=== PATIENT | female | born 1985 | race African-American/Black ===

== ENCOUNTER 2020-09-15 09:01 | Emergency (ER) | payer MEDICAID ==
[~2020-09-15] VITALS: Ht 165.1 cm; Wt 59.0 kg
[2020-09-15] MEDS ORDERED: SODIUM CHLORIDE 0.9% 1,000 ML IV ONE (10:00)
[2020-09-15] MEDS ORDERED: ONDANSETRON HCL 4MG/2ML INJ IV ONE (10:00)
[2020-09-15] MEDS ORDERED: FAMO-135 MT (11:43)
[2020-09-15] MEDS ORDERED: ONDA4TAB11 PO (11:44)
[2020-09-15] MEDS ORDERED: FAMOTIDINE 20MG/2ML VIAL IV ONE (11:45)
[2020-09-15] MEDS ORDERED: METOCLOPRAMIDE HCL 10MG/2ML VIAL IV ONE (12:15)
[2020-09-15] MEDS ORDERED: DEXAMETHASONE 4MG/ML 1ML VIAL IV SCH (12:15)
[2020-09-15 12:23] VITALS: BP 134/73
[2020-09-16] MEDS ORDERED: FAMO-134 MT (11:46)
[2020-09-16] MEDS ORDERED: POTA20TA82 MT (11:46)
[2020-09-16] MEDS ORDERED: METO-293 MT (11:46)
== END 2020-09-15 12:30 | disposition home or self-care (01) ==
LOC: ER 09:01
DX: O21.0 Mild hyperemesis gravidarum (principal); O09.521 Supervision of elderly multigravida, first trimester; Z3A.01 Less than 8 weeks gestation of pregnancy
CPT/HCPCS: 93005; 96361; 96374; 96375; 99285; J1100; J2405; J2765; J3490; J7030; Z7610

== ENCOUNTER 2020-09-16 06:13 | Emergency (ER) | payer MEDICAID ==
[~2020-09-16] VITALS: Ht 160 cm; Wt 68.1 kg
[~2020-09-16 06:13] MED LIST: FAMO-135 MT; ONDA4TAB11 PO
[2020-09-16] MEDS ORDERED: FAMOTIDINE 20MG/2ML VIAL IV ONE (07:15)
[2020-09-16] MEDS ORDERED: SODIUM CHLORIDE 0.9% 1,000 ML IV ONE (07:15)
[2020-09-16] MEDS ORDERED: METOCLOPRAMIDE HCL 10MG/2ML VIAL IV ONE (07:15)
[2020-09-16 08:03] LABS: BASOPHILS % 0.7 % (0.0-2.0); EOSINOPHILS % 0.1 % (0.0-5.0); HEMOGLOBIN. 9.9 g/dL (12.0-16.0); LYMPHOCYTES % 10.6 % (20.0-50.0); MEAN CORPUSCULAR HEMOGLOBIN 23.5 pg (28.0-32.0); MEAN CORPUSCULAR VOLUME 73.6 fL (81.0-99.0); MEAN PLATELET VOLUME 8.3 fl (7.4-10.4); MONOCYTES % 8.6 % (2.0-8.0); PLATELET 388 x1000/uL (130-400); RED BLOOD CELL COUNT 4.22 mill/uL (4.2-5.4); RED CELL DISTRIBUTION WIDTH 21.9 % (11.6-14.6)
[2020-09-16 08:14] LABS: CHLORIDE 103 mEq/L (98-107)
[2020-09-16 08:37] LABS: B-HCG QUANTITATIVE 68184 mIU/mL (<3)
[2020-09-16] MEDS ORDERED: KCL 20MEQ/100ML PREMIX 100 ML IV SCH (09:00)
[2020-09-16] MEDS ORDERED: METOCLOPRAMIDE HCL 10MG/2ML VIAL IV SCH (09:00)
[2020-09-16] MEDS ORDERED: PROCHLORPERAZINE 10MG/2ML VIAL IM ONE (10:30)
[2020-09-16] MEDS ORDERED: MAGNESIUM/ALUMINUM HYDROXIDE/SIMETHICONE 30ML UDC PO ONE (10:45)
[2020-09-16] MEDS ORDERED: POTASSIUM CHLORIDE 20MEQ TABLET SR PO NR (11:45)
[2020-09-16] MEDS ORDERED: FAMO-134 MT (11:46)
[2020-09-16] MEDS ORDERED: POTA20TA82 MT (11:46)
[2020-09-16] MEDS ORDERED: METO-293 MT (11:46)
[2020-09-16 12:36] VITALS: BP 121/67
== END 2020-09-16 12:37 | disposition home or self-care (01) ==
LOC: ER 06:13
DX: O21.8 Other vomiting complicating pregnancy (principal); J45.909 Unspecified asthma, uncomplicated; Z3A.01 Less than 8 weeks gestation of pregnancy; Z79.899 Other long term (current) drug therapy
CPT/HCPCS: 36415; 76801; 76817; 80053; 84702; 85025; 93005; 96372; 96374; 96375; 96376; 99285; J0780; J2765; J3480; J3490; J7030